=== PATIENT | male | born 2000 | race Two or more races ===

== ENCOUNTER 2023-04-22 21:39 | Emergency (ER) | payer OTHER ==
[~2023-04-22] VITALS: Ht 180.3 cm; Wt 103.0 kg
[2023-04-22 22:02] LABS: GLUCOMETER DEV NAME(LOC) ER.6; GLUCOSE,POINT OF CARE 107 MG/DL (70-110)
[2023-04-22] MEDS ORDERED: ONDANSETRON HCL 4 MG/2 ML VIAL IVP ONE (22:15)
[2023-04-22] MEDS ORDERED: SODIUM CHLORIDE 0.9% 3,100 ML IV ONE (22:15)
[2023-04-22] MEDS ORDERED: 0.9% SODIUM CHLORIDE 10 ML SYRINGE IVP PRN (22:15)
[2023-04-22] MEDS ORDERED: ACETAMINOPHEN 1000 MG/ISO-OSM 100 ML IV ONE (22:15)
[2023-04-22 22:34] LABS: BASOPHILS % (AUTO) 0.6 % (0.0-2.0); EOSINOPHILS % (AUTO) 0.1 % (1.0-6.0); HEMATOCRIT 51.4 % (41-53); HEMOGLOBIN 16.7 g/dL (13.5-17.5); LYMPHOCYTES # (AUTO) 0.5 K/uL (1.0-4.8); MEAN CORPUSCULAR HEMOGLOBIN 26.6 pg (26.0-34.0); MEAN CORPUSCULAR HGB CONC 32.4 G/dL (31.0-37.0); MEAN CORPUSCULAR VOLUME 82 fL (80-100); MONOCYTES % (AUTO) 5.9 % (2.0-9.0); NEUTROPHILS # (AUTO) 14.6 K/uL (1.8-7.7); PLATELET COUNT (AUTO) 218 K/uL (150-450); RED BLOOD CELL COUNT(AUTO) 6.26 MIL/uL (4.50-5.90); RED CELL DISTRIBUTION WIDTH 13.4 % (11.5-14.5); WHITE BLOOD COUNT (AUTO) 16.2 K/uL (4.5-11.0)
[2023-04-22 22:38] LABS: NEUTROPHILS % (AUTO) 90.4 % (40.0-70.0)
[2023-04-22 22:48] LABS: ANION GAP 12 mmol/L (8-16); CALCIUM, TOTAL 9.7 mg/dL (8.8-10.5); CARBON DIOXIDE 24 mmol/L (22-29); CHLORIDE 101 mmol/L (98-107); CREATININE 1.07 mg/dL (0.60-1.30); GLOMERULAR FILTR. RATE CALC > 60 mL/min (>60); GLUCOSE,RANDOM 106 mg/dL (70-110); SODIUM SERUM 137 mmol/L (136-145); UREA NITROGEN, BLOOD 18 mg/dL (7-18)
[2023-04-22 22:52] LABS: APPEARANCE,URINE CLEAR (CLEAR); BILIRUBIN,URINE NEGATIVE (NEGATIVE); COLOR,URINE YELLOW (YELLOW); GLUCOSE, URINE (UA) NEGATIVE (NEGATIVE); KETONES,URINE 40-60 mg/dL (NEGATIVE); LEUKOCYTE ESTERASE ,URINE NEGATIVE (NEGATIVE); NITRATE,URINE NEGATIVE (NEGATIVE); OCCULT BLOOD,URINE NEGATIVE (NEGATIVE); PROTEIN,URINE TRACE mg/dL (NEGATIVE); SPECIFIC GRAVITIY, URINE 1.038 (1.003-1.030); UROBILINOGEN,URINE <=1.0 mg/dL (<=1.0)
[2023-04-22 22:53] LABS: ALANINE AMINOTRANSFERASE 107 U/L (12-78); ALBUMIN 4.4 g/dL (3.4-5.0); ALKALINE PHOSPHATASE 131 U/L (46-116); ASPARTATE AMINOTRANSFERASE 34 U/L (15-37); BILIRUBIN,TOTAL 0.7 mg/dL (0.1-1.0)
[2023-04-22 22:55] LABS: TROPONIN I-HIGH SENSITIVITY 5 ng/L (<76)
[2023-04-22 22:59] LABS: ALCOHOL, URINE DRUG SCREEN NEGATIVE (NEGATIVE); AMPHET/METH SCREEN,URINE NEGATIVE (NEGATIVE); BARBITURATE SCREEN, URINE NEGATIVE (NEGATIVE); BENZODIAZEPINES SCREEN,URINE NEGATIVE (NEGATIVE); CANNABINOID SCREEN,URINE NEGATIVE (NEGATIVE); COCAINE SCREEN,URINE NEGATIVE (NEGATIVE); METHADONE SCREEN, URINE NEGATIVE (NEGATIVE); OPIATE SCREEN,URINE NEGATIVE (NEGATIVE); PHENCYCLIDINE SCREEN,URINE NEGATIVE (NEGATIVE)
[2023-04-22 22:59] LABS: COVID AG,FIA SOURCE NASAL SWAB
[2023-04-22] MEDS ORDERED: PIPERACILLIN/TAZO 3.375 GM/D5W 50 ML IV ONE (23:00)
[2023-04-22] MEDS ORDERED: VANCOMYCIN HCL 1.25 GM in DEXTROSE 5%-WATER 250 ML IV ONE (23:00)
[2023-04-22 23:07] LABS: B-TYPE NATRIURETIC PEPTIDE < 5 pg/mL (0-100)
[2023-04-22 23:19] LABS: INFLUENZA TYPE A NEGATIVE FOR TYPE A (NEGATIVE); INFLUENZA TYPE B NEGATIVE FOR TYPE B (NEGATIVE); SARS-COV2 (COVID) ANTIGEN,FIA Negative (Negative)
[2023-04-22] MEDS ORDERED: SODIUM CHLORIDE 0.9% 100 ML ONE ×2 (23:22→23:44)
[2023-04-22] MEDS ORDERED: IOHEXOL 350 MG/ML 100 ML VIAL ONE ×2 (23:22→23:44)
[2023-04-22 23:26] LABS: CREATINE KINASE, TOTAL ONLY 93 U/L (39-308)
[2023-04-23] MEDS ORDERED: AZITHROMYCIN 500 MG/NS 250 ML IV ONE (00:30)
[2023-04-23 02:26] VITALS: BP 106/74; PULSE 109; RESP 18; TEMP 98.2
[2023-04-23] MEDS ORDERED: ONDANSETRON HCL 4 MG/2 ML VIAL IVP PRN (02:45)
[2023-04-23] MEDS ORDERED: 0.9% SODIUM CHLORIDE 10 ML SYRINGE IVP PRN (02:45)
[2023-04-23] MEDS ORDERED: ACETAMINOPHEN 325 MG TABLET PO PRN (02:45)
[2023-04-23] MEDS ORDERED: IBUP-1492 PO (04:12)
[2023-04-23] MEDS ORDERED: LEVO750T68 PO (04:12)
[2023-04-23] MEDS ORDERED: ACET-3385 PO (04:12)
[2023-04-23] MEDS ORDERED: ONDA-104 PO (04:12)
== END 2023-04-23 04:44 | disposition left against medical advice (07) ==
LOC: EMS 21:43
DX: J18.9 Pneumonia, unspecified organism (principal); R46.2 Strange and inexplicable behavior; Z20.822 Contact with and (suspected) exposure to COVID-19
CPT/HCPCS: 99291; 70450; 96365; 71045; 96375; 87426; 80053; 82550; 82962; 83605; 83880; 84484; 85025; 87040; 87804; 36415; 74177; 82948; 93005; 80307; 84145; 81003; 96367; 96366; 96376; 96368; J2405 ×2; J3370; Q9967; J7060; J7030; J7050; J0131; J0456; J2543